=== PATIENT | female | born 1955 | race African-American/Black ===

== ENCOUNTER 2018-05-03 12:59 | Emergency (ER) | payer MEDICAID ==
[~2018-05-03] VITALS: Ht 160 cm; Wt 64.0 kg
[2018-05-03] MEDS ORDERED: KETOROLAC 30MG/ML VIAL IV ONE (17:00)
[2018-05-03 17:26] LABS: BASOPHILS % 1.3 % (0.0-2.0); HEMATOCRIT. 38.2 % (36.0-48.0); HEMOGLOBIN. 12.3 g/dL (12.0-16.0); MEAN CORPUSCULAR HEMOGLOBIN 26.9 pg (28.0-32.0); MEAN CORPUSCULAR VOLUME 83.2 fL (81.0-99.0); MEAN PLATELET VOLUME 9.5 fl (7.4-10.4); NEUTROPHILS % 58.7 % (40.0-76.0); PLATELET 199 x1000/uL (130-400); RED BLOOD CELL COUNT 4.59 mill/uL (4.2-5.4); RED CELL DISTRIBUTION WIDTH 14.6 % (11.6-14.6)
[2018-05-03 19:13] LABS: CHLORIDE 108 mEq/L (98-107)
[2018-05-03 19:34] VITALS: BP 120/67
== END 2018-05-03 20:03 | disposition home or self-care (01) ==
LOC: ER 16:41
DX: R07.89 Other chest pain (principal); R00.1 Bradycardia, unspecified; R03.0 Elevated blood-pressure reading, without diagnosis of hypertension
CPT/HCPCS: 36415; 71045; 80053; 83880; 84484; 85025; 93005; 96374; 99285; J1885

== ENCOUNTER 2019-08-29 12:37 | Emergency (ER) | payer MEDICAID ==
[~2019-08-29] VITALS: Ht 162.6 cm; Wt 68.0 kg
[2019-08-29] MEDS ORDERED: IPRATROPIUM BROMIDE (0.02%) 0.5MG/2.5ML NEB HHN STA (15:07)
[2019-08-29] MEDS ORDERED: PREDNISONE 20MG TABLET PO STA (15:07)
[2019-08-29] MEDS ORDERED: ALBUTEROL (0.083%) 2.5MG/3ML NEB HHN STA (15:07)
[2019-08-29] MEDS ORDERED: ASPIRIN 81MG TABLET PO ONE (15:15)
[2019-08-29 15:46] LABS: CHLORIDE 109 mEq/L (98-107)
[2019-08-29 15:48] LABS: BASOPHILS % 1.3 % (0.0-2.0); EOSINOPHILS % 7.8 % (0.0-5.0); HEMATOCRIT. 38.3 % (36.0-48.0); HEMOGLOBIN. 12.6 g/dL (12.0-16.0); LYMPHOCYTES % 36.6 % (20.0-50.0); MEAN CORPUSCULAR HEMOGLOBIN 26.9 pg (28.0-32.0); MEAN PLATELET VOLUME 8.4 fl (7.4-10.4); MONOCYTES % 6.3 % (2.0-8.0); PARTIAL THROMBOPLASTIN TIME 25.6 sec (23.4-31.0); PLATELET 244 x1000/uL (130-400); PROTHROMBIN TIME 10.8 sec (9.6-11.0); RED BLOOD CELL COUNT 4.67 mill/uL (4.2-5.4); RED CELL DISTRIBUTION WIDTH 14.6 % (11.6-14.6)
[2019-08-29 17:00] VITALS: BP 111/59
== END 2019-08-29 17:15 | disposition home or self-care (01) ==
LOC: ER 13:24
DX: J18.9 Pneumonia, unspecified organism (principal); R03.0 Elevated blood-pressure reading, without diagnosis of hypertension
CPT/HCPCS: 36415; 71045; 80053; 83880; 84484; 85025; 85610; 85730; 93005; 99285; J7512; J7610; Z7610

== ENCOUNTER 2021-08-03 11:50 | Emergency (ER) | payer MEDICAID ==
[~2021-08-03] VITALS: Ht 162.6 cm; Wt 77.0 kg
[2021-08-03] MEDS ORDERED: ACETAMINOPHEN 325MG TABLET PO ONE (12:00)
[2021-08-03] MEDS ORDERED: LIDO1ADH5 TP (15:37)
[2021-08-03 16:24] VITALS: BP 126/75
== END 2021-08-03 16:25 | disposition home or self-care (01) ==
LOC: ER 11:50
DX: R51.9 Headache, unspecified (principal); M25.561 Pain in right knee; G89.11 Acute pain due to trauma; V49.49XA Driver injured in collision with other motor vehicles in traffic accident, initial encounter; Y93.89 Activity, other specified; Y92.488 Other paved roadways as the place of occurrence of the external cause
CPT/HCPCS: 73562; 99284